=== PATIENT | male | born 1965 | race Caucasian/White ===

== ENCOUNTER → 2018-12-12 | Outpatient (CLI) | payer OTHER, SELFPAY ==
--- NOTE | 2018-12-12 11:02 | CT_ITS ---
STUDY: LOW DOSE CT LUNG CANCER SCREENING REASON FOR EXAM: Male, 53 years old. Low dose lung cancer screening. Smoker 25 years 1 pack per day. Hypertension. RADIATION DOSAGE (If Supplied By Facility): CTDIvol = ( 4.02 ) mGy, DLP = ( 157.53 ) mGycm Individualized dose optimization techniques were used for this CT. TECHNIQUE: No contrast was administered. Low dose technique was utilized (average mAS-38 and kVp 120). Thin slice transaxial CT imaging of the chest. Coronal and sagittal 2-D MPR. Nodule measured using lung windows on PACS and/or independent workstation with automated measurement of minimum and maximum diameter. Nodule measurement reported as average diameter rounded to the nearest whole number. Growth is defined as an increase ins size of greater than 1.5 mm. COMPARISON: None. FINDINGS: Total lung nodules (excluding granulomas): There is a left upper lobe apical segment particular focus with mildly nodular morphology measuring about 5 mm, favoring chronic scar. No other pulmonary nodules are apparent. Emphysema: Generalized pulmonary hyperlucency suggesting COPD without features of centrilobular or paraseptal emphysema. Endobronchial lesion: None. Aorta: Nondilated. Coronary arteries: Small focus of coronary calcium proximal LAD, proximal RCA. Minimal focus of coronary calcium mid LAD. Normal coronary artery origins and branching anatomy. Heart: No cardiomegaly or pericardial effusion. Pulmonary artery: Nondilated. Mediastinal nodes: No mediastinal mass or lymphadenopathy. No hilar lymphadenopathy. Normal esophagus. Other chest and abdominal findings: Upper abdomen, body wall soft tissues, supraclavicular soft tissues, osseous structures exhibit no acute process. CT/Low Dose CT Lung Screening IMPRESSION: Left apical pulmonary nodule 5 mm favoring chronic scar. ACR lung RADS category 2, benign appearance. Recommend follow-up 1 year low-dose chest CT screening. No other acute thoracic process is evident. IMPORTANT NOTES FOR USE: ACR Lung-RADS Version 1.0 Assessment Categories Release Date: October 04, 2013 Category: Coded 0-4 bases on nodule(s) with highest degree of suspicion. Negative screen is defined as categories 1 and 2; a positive screen is defined as categories 3 and 4. Category 3 and 4A nodules that are unchanged on interval CT should be coded as category 2, and individuals returned to screening in 12 months. Category 4X: Category 3 or 4 nodules with additional imaging findings that increase the suspicion of lung cancer, such as spiculation, GGN that doubles in size in 1 year, enlarged lymph notes, etc. Category Modifiers: S (significant finding unrelated to lung cancer) and C (prior history of treated lung cancer) may be added to the 0-4 Lung-RADS Electronically Signed: Reagan Byrd MD at 12:57 EDT Tel , Service support ,
== END | disposition home or self-care (01) ==
PROVIDERS: Family Provider Family Medicine; PCP Family Medicine; Referring Provider Family Medicine; Visit Provider Family Medicine
DX: F17.200 Nicotine dependence, unspecified, uncomplicated (principal); Z12.2 Encounter for screening for malignant neoplasm of respiratory organs
CPT/HCPCS: G0297